=== PATIENT | female | born 1960 | race African-American/Black ===

== ENCOUNTER 2016-03-24 10:18 | Inpatient (IN) | payer MEDICAID ==
[~2016-03-24] VITALS: Ht 165.1 cm; Wt 69.9 kg
[2016-03-24] VITALS (31 sets, daily range): BP systolic 60–118; RESP 13–34; TEMP 90–91.8; Ht 165.1 cm; Wt 69.9 kg
[2016-03-24] MEDS ORDERED: ALBUMIN HUMAN 25GM (25%) 100 ML IV ONE ×2 (14:25)
[2016-03-24] MEDS ORDERED: SODIUM CHLORIDE 0.9% 500 ML IV ONE (14:25)
[2016-03-24] MEDS: SODIUM CHLORIDE 0.9% 1,000 ML IV SCH (14:44)
[2016-03-24] MEDS ORDERED: VANCOMYCIN 1,000 MG in SODIUM CHLORIDE 0.9% 250 ML IV ONE (15:35)
[2016-03-24] MEDS ORDERED: ACETAMINOPHEN 650 MG/20.3 ML UDC PEG PRN (15:40)
[2016-03-24] MEDS ORDERED: ONDANSETRON 4 MG VIAL IV PUSH PRN (15:40)
[2016-03-24] MEDS ORDERED: VANCOMYCIN 1,000 MG in SODIUM CHLORIDE 0.9% 250 ML IV SCH (16:00)
[2016-03-24] MEDS: PIPERACIL/TAZO 2.25GM/50ML 50 ML IV SCH (16:10)
[2016-03-24] MEDS: NOREPINEPHRINE 16 MG in DEXTROSE 5% 234 ML IV SCH (16:11)
[2016-03-24] MEDS ORDERED: PIPERACIL/TAZO 2.25GM/50ML 50 ML IV SCH (20:00)
[2016-03-24] MEDS ORDERED: MIDODRINE 10 MG TAB GTUBE SCH (21:00)
[2016-03-24] MEDS: DAKIN'S 0.125% 480 ML TOPICAL SCH (21:18)
[2016-03-25] VITALS (70 sets, daily range): BP systolic 70–160; RESP 10–48; TEMP 88.6–99.1
[2016-03-25] MEDS: SODIUM CHLORIDE 0.9% 1,000 ML IV SCH (06:01)
[2016-03-25] MEDS: MIDODRINE 10 MG TAB GTUBE SCH ×3 (06:04→16:27)
[2016-03-25] MEDS: PIPERACIL/TAZO 2.25GM/50ML 50 ML IV SCH ×2 (08:00→20:36)
[2016-03-25] MEDS: DAKIN'S 0.125% 480 ML TOPICAL SCH ×2 (08:00→20:37)
[2016-03-25] MEDS ORDERED: VANCOMYCIN 1,500 MG in SODIUM CHLORIDE 0.9% 250 ML IV ONE (11:45)
[2016-03-25] MEDS ORDERED: MISSING DOSE XX ONE (13:05)
[2016-03-25] MEDS ORDERED: SODIUM CHLORIDE 0.9% 1,000 ML IV SCH (14:55)
[2016-03-26] VITALS (95 sets, daily range): BP systolic 49–142; RESP 11–48; TEMP 96.3–98.2
[2016-03-26] MEDS ORDERED: MISSING DOSE XX ONE ×2 (04:50→15:25)
[2016-03-26] MEDS: PIPERACIL/TAZO 2.25GM/50ML 50 ML IV SCH ×2 (08:10→20:53)
[2016-03-26] MEDS: MIDODRINE 10 MG TAB GTUBE SCH ×3 (08:10→15:50)
[2016-03-26] MEDS: DAKIN'S 0.125% 480 ML TOPICAL SCH ×2 (08:11→20:53)
[2016-03-26] MEDS ORDERED: hePARIN 1,000 UNITS/ML (PORCINE) 10 ML ONE (08:33)
[2016-03-26] MEDS ORDERED: SODIUM CHLORIDE 0.9% 1,000 ML IV PRN (09:55)
[2016-03-26] MEDS ORDERED: ALBUMIN HUMAN 25GM (25%) 100 ML IV PRN (09:55)
[2016-03-26] MEDS ORDERED: SODIUM CHLORIDE 0.9% 1,000 ML IV SCH (09:55)
[2016-03-26] MEDS ORDERED: ONDANSETRON 4 MG VIAL IV PRN (09:55)
[2016-03-26] MEDS: NOREPINEPHRINE 16 MG in DEXTROSE 5% 234 ML IV SCH (15:50)
[2016-03-27] VITALS (79 sets, daily range): BP systolic 53–127; RESP 0–45; TEMP 98.1–98.6
[2016-03-27] MEDS ORDERED: MISSING DOSE XX ONE ×2 (01:30→14:20)
[2016-03-27] MEDS: MIDODRINE 10 MG TAB GTUBE SCH ×3 (06:18→16:00)
[2016-03-27] MEDS: PIPERACIL/TAZO 2.25GM/50ML 50 ML IV SCH ×2 (07:57→20:00)
[2016-03-27] MEDS: SODIUM CHLORIDE 0.9% 1,000 ML IV SCH (07:58)
[2016-03-27] MEDS: DAKIN'S 0.125% 480 ML TOPICAL SCH ×2 (07:59→21:49)
[2016-03-27] MEDS: PHENYLEPHRINE 40 MG in SODIUM CHLORIDE 0.9% 250 ML IV SCH (21:49)
[2016-03-28] VITALS (41 sets, daily range): BP systolic 64–130; RESP 13–48; TEMP 97.9–98.5
[2016-03-28] MEDS ORDERED: MISSING DOSE XX ONE ×5 (01:30→21:05)
[2016-03-28] MEDS: MIDODRINE 10 MG TAB GTUBE SCH ×3 (08:04→16:47)
[2016-03-28] MEDS: DAKIN'S 0.125% 480 ML TOPICAL SCH ×2 (08:08→21:05)
[2016-03-28] MEDS: PIPERACIL/TAZO 2.25GM/50ML 50 ML IV SCH ×2 (08:08→20:28)
[2016-03-28] MEDS: PHENYLEPHRINE 40 MG in SODIUM CHLORIDE 0.9% 250 ML IV SCH ×2 (10:06→21:19)
[2016-03-28] MEDS: NOREPINEPHRINE 16 MG in DEXTROSE 5% 234 ML IV SCH (10:07)
[2016-03-28] MEDS ORDERED: LIDOCAINE 2% 20 ML ONE (13:20)
[2016-03-28] MEDS: HYDROCORT TOPICAL SCH (21:05)
[2016-03-29] VITALS (45 sets, daily range): BP systolic 68–109; RESP 9–45; TEMP 98.1–98.3
[2016-03-29] MEDS: PHENYLEPHRINE 40 MG in SODIUM CHLORIDE 0.9% 250 ML IV SCH ×2 (07:01→18:09)
[2016-03-29] MEDS: MIDODRINE 10 MG TAB GTUBE SCH ×3 (07:49→14:53)
[2016-03-29] MEDS: DAKIN'S 0.125% 480 ML TOPICAL SCH ×2 (07:49→21:04)
[2016-03-29] MEDS: PIPERACIL/TAZO 2.25GM/50ML 50 ML IV SCH (07:49)
[2016-03-29] MEDS: HYDROCORT TOPICAL SCH ×2 (07:50→21:03)
[2016-03-29] MEDS ORDERED: MISSING DOSE XX ONE ×3 (09:55→17:20)
[2016-03-29] MEDS ORDERED: PHARMACY TO DOSE MERREM XX SCH (13:35)
[2016-03-29] MEDS ORDERED: PHARMACY TO DOSE XX SCH (13:35)
[2016-03-29] MEDS ORDERED: SODIUM CHLORIDE 0.9% IV ONE ×2 (14:00→17:20)
[2016-03-29] MEDS ORDERED: COLISTIMETHATE IV ONE ×2 (14:00→17:20)
[2016-03-29] MEDS: NOREPINEPHRINE 16 MG in DEXTROSE 5% 234 ML IV SCH (18:08)
[2016-03-30] VITALS (48 sets, daily range): BP systolic 74–106; RESP 15–46; TEMP 92.4–98.3
[2016-03-30] MEDS: NOREPINEPHRINE 16 MG in DEXTROSE 5% 234 ML IV SCH ×2 (03:43→12:42)
[2016-03-30] MEDS: PHENYLEPHRINE 40 MG in SODIUM CHLORIDE 0.9% 250 ML IV SCH ×2 (03:44→17:01)
[2016-03-30] MEDS: MIDODRINE 10 MG TAB GTUBE SCH ×3 (06:49→15:55)
[2016-03-30] MEDS: HYDROCORT TOPICAL SCH (11:49)
[2016-03-30] MEDS: DAKIN'S 0.125% 480 ML TOPICAL SCH (11:50)
[2016-03-30] MEDS ORDERED: MISSING DOSE XX ONE ×4 (12:20→23:25)
[2016-03-30] MEDS: SODIUM CHLORIDE 0.9% IV SCH (20:53)
[2016-03-30] MEDS: COLISTIMETHATE IV SCH (20:53)
[2016-03-31] VITALS (56 sets, daily range): BP systolic 64–102; RESP 16–53; TEMP 95.4–98.1
[2016-03-31] MEDS: DAKIN'S 0.125% 480 ML TOPICAL SCH ×3 (00:12→23:45)
[2016-03-31] MEDS: HYDROCORT TOPICAL SCH ×3 (00:12→23:45)
[2016-03-31] MEDS: PHENYLEPHRINE 40 MG in SODIUM CHLORIDE 0.9% 250 ML IV SCH ×6 (00:13→22:05)
[2016-03-31] MEDS: NOREPINEPHRINE 16 MG in DEXTROSE 5% 234 ML IV SCH ×3 (00:13→14:24)
[2016-03-31] MEDS ORDERED: MISSING DOSE XX ONE ×4 (04:15→20:20)
[2016-03-31] MEDS: MIDODRINE 10 MG TAB GTUBE SCH ×4 (07:00→16:00)
[2016-03-31] MEDS ORDERED: SODIUM BICARB 8.4% IV SCH (13:50)
[2016-03-31] MEDS ORDERED: DEXTROSE 5% IV SCH (13:50)
[2016-03-31] MEDS: VASOPRESSIN 40 UNITS in SODIUM CHLORIDE 0.9% 38 ML IV SCH (16:56)
[2016-03-31] MEDS: COLISTIMETHATE IV SCH (20:15)
[2016-03-31] MEDS: SODIUM CHLORIDE 0.9% IV SCH (20:15)
[2016-04-01] VITALS (33 sets, daily range): BP systolic 0–90; RESP 0–30; TEMP 98.6–99.9
[2016-04-01] MEDS: VASOPRESSIN 40 UNITS in SODIUM CHLORIDE 0.9% 38 ML IV SCH (00:07)
[2016-04-01] MEDS: NOREPINEPHRINE 16 MG in DEXTROSE 5% 234 ML IV SCH (01:33)
[2016-04-01] MEDS ORDERED: MISSING DOSE XX ONE ×3 (01:40→08:10)
[2016-04-01] MEDS: PHENYLEPHRINE 40 MG in SODIUM CHLORIDE 0.9% 250 ML IV SCH ×2 (02:15→05:59)
[2016-04-01] MEDS: MIDODRINE 10 MG TAB GTUBE SCH (04:11)
[2016-04-01] MEDS ORDERED: MORPHINE 2 MG/ML SYR IV PRN (10:45)
== END 2016-04-01 12:08 | disposition expired | DRG 871 ==
LOC: ENRESERVDT → ENRESERVTM → ICU 12:46
PROVIDERS: ADMIT Internal Medicine Nephrology; ATTEND Internal Medicine Nephrology
PROC: 02HV33Z Insertion of Infusion Device into Superior Vena Cava, Percutaneous Approach (ICD-10-PCS; 2016-03-25)
PROC: B548ZZA Ultrasonography of Superior Vena Cava, Guidance (ICD-10-PCS; 2016-03-25)
PROC: 5A1D00Z (ICD-10-PCS; principal; 2016-03-26)
PROC: 06PYX3Z Removal of Infusion Device from Lower Vein, External Approach (ICD-10-PCS; 2016-03-28)
CPT/HCPCS: 36600; 71010; 80053; 82803; 83605; 85007; 85025; 85027; 87040; 87077; 87186; 93306; 94002; 94799; 99291